=== PATIENT | male | born 1955 | race African-American/Black ===

== ENCOUNTER 2021-01-16 06:44 | Emergency (ER) | payer MEDICARE, MEDICAID ==
[~2021-01-16] VITALS: Ht 165.1 cm; Wt 83.0 kg
[~2021-01-16 06:44] MED LIST: AMLO10TA80 MT; ASPI81TA47 PO; BENA40TA9 MT; LEVO137T2 MT; TERA5CAP4 MT; XALAO EACHEYE
[2021-01-16 08:39] LABS: BASOPHILS % 0.1 % (0.0-2.0); EOSINOPHILS % 3.4 % (0.0-5.0); HEMATOCRIT. 43.6 % (42.0-52.0); HEMOGLOBIN. 14.4 g/dL (14.0-18.0); LYMPHOCYTES % 37.7 % (20.0-50.0); MEAN CORPUSCULAR HEMOGLOBIN 26.7 pg (28.0-32.0); MEAN CORPUSCULAR VOLUME 80.7 fL (80.0-94.0); MEAN PLATELET VOLUME 9.5 fl (7.4-10.4); MONOCYTES % 10.1 % (2.0-8.0); NEUTROPHILS % 48.7 % (40.0-76.0); PLATELET 152 x1000/uL (130-400); RED CELL DISTRIBUTION WIDTH 14.9 % (11.6-14.6)
[2021-01-16 08:45] LABS: CHLORIDE 104 mEq/L (98-107)
[2021-01-16 13:30] VITALS: BP 112/67
== END 2021-01-16 14:32 | disposition home or self-care (01) ==
LOC: ER 07:04
DX: I16.0 Hypertensive urgency (principal); I10 Essential (primary) hypertension; F41.9 Anxiety disorder, unspecified; H93.13 Tinnitus, bilateral; E87.8 Other disorders of electrolyte and fluid balance, not elsewhere classified; F13.10 Sedative, hypnotic or anxiolytic abuse, uncomplicated; Z79.82 Long term (current) use of aspirin
CPT/HCPCS: 36415; 80048; 84484; 85025; 93005; 99285

== ENCOUNTER 2022-03-27 22:14 | Emergency (ER) | payer MEDICARE, MEDICAID ==
[~2022-03-27] VITALS: Ht 172.7 cm; Wt 82.0 kg
[~2022-03-27 22:14] MED LIST changes: -BENA40TA9 MT; +BENA40TA91 MT
[2022-03-27 22:18] VITALS: BP 146/90
[2022-03-27 23:50] LABS: BASOPHILS % 0.5 % (0.0-2.0); EOSINOPHILS % 3.2 % (0.0-5.0); HEMATOCRIT. 41.8 % (42.0-52.0); HEMOGLOBIN. 13.6 g/dL (14.0-18.0); LYMPHOCYTES % 38.9 % (20.0-50.0); MEAN CORPUSCULAR HEMOGLOBIN 26.9 pg (28.0-32.0); MEAN CORPUSCULAR VOLUME 82.5 fL (80.0-94.0); MEAN PLATELET VOLUME 9.4 fl (7.4-10.4); MONOCYTES % 7.1 % (2.0-8.0); NEUTROPHILS % 50.3 % (40.0-76.0); PLATELET 153 x1000/uL (130-400); RED BLOOD CELL COUNT 5.06 mill/uL (4.7-6.1); RED CELL DISTRIBUTION WIDTH 15.4 % (11.6-14.6)
[2022-03-27 23:54] LABS: CHLORIDE 104 mEq/L (98-107)
== END 2022-03-28 01:04 | disposition home or self-care (01) ==
LOC: ER 22:14
DX: I10 Essential (primary) hypertension (principal)
CPT/HCPCS: 36415; 71045; 80053; 83880; 84484; 85025; 93005; 99285

== ENCOUNTER 2022-04-02 13:40 | Emergency (ER) | payer MEDICARE, MEDICAID ==
[~2022-04-02] VITALS: Ht 172.7 cm; Wt 66.0 kg
[2022-04-02 15:07] LABS: BASOPHILS % 0.5 % (0.0-2.0); HEMATOCRIT. 38.2 % (42.0-52.0); HEMOGLOBIN. 12.5 g/dL (14.0-18.0); MEAN CORPUSCULAR VOLUME 82.3 fL (80.0-94.0); NEUTROPHILS % 58.5 % (40.0-76.0); PLATELET 143 x1000/uL (130-400); RED BLOOD CELL COUNT 4.64 mill/uL (4.7-6.1); RED CELL DISTRIBUTION WIDTH 15.4 % (11.6-14.6)
[2022-04-02 15:09] LABS: CHLORIDE 105 mEq/L (98-107)
[2022-04-02 16:21] VITALS: BP 121/67
== END 2022-04-02 16:23 | disposition home or self-care (01) ==
LOC: ER 13:56
DX: R07.9 Chest pain, unspecified (principal); I10 Essential (primary) hypertension; Z79.82 Long term (current) use of aspirin
CPT/HCPCS: 36415; 71045; 80053; 83880; 84484; 85025; 93005; 99285

== ENCOUNTER 2022-04-17 08:44 | Emergency (ER) | payer MEDICARE, MEDICAID ==
[~2022-04-17] VITALS: Ht 167.6 cm; Wt 82.0 kg
[2022-04-17] MEDS ORDERED: NITROGLYCERIN OINT 1GM/INCH UDPKT TD ONE ×2 (10:00→12:00)
[2022-04-17] MEDS ORDERED: ASPIRIN 81MG TABLET PO ONE ×2 (10:00→12:00)
[2022-04-17 11:15] LABS: BASOPHILS % 0.4 % (0.0-2.0); EOSINOPHILS % 1.4 % (0.0-5.0); HEMATOCRIT. 38.1 % (42.0-52.0); HEMOGLOBIN. 12.8 g/dL (14.0-18.0); LYMPHOCYTES % 30.4 % (20.0-50.0); MEAN CORPUSCULAR HEMOGLOBIN 27.4 pg (28.0-32.0); MEAN CORPUSCULAR VOLUME 81.9 fL (80.0-94.0); MEAN PLATELET VOLUME 9.5 fl (7.4-10.4); MONOCYTES % 9.9 % (2.0-8.0); NEUTROPHILS % 57.9 % (40.0-76.0); PLATELET 136 x1000/uL (130-400); RED BLOOD CELL COUNT 4.65 mill/uL (4.7-6.1); RED CELL DISTRIBUTION WIDTH 15.4 % (11.6-14.6)
[2022-04-17 11:24] LABS: CHLORIDE 106 mEq/L (98-107)
[2022-04-17 11:34] LABS: ETHANOL BLOOD < 10 mg/dL
[2022-04-17] MEDS ORDERED: ONDANSETRON HCL 4MG/2ML INJ IV PRN (15:00)
[2022-04-17] MEDS ORDERED: ACETAMINOPHEN 325MG TABLET PO PRN (15:00)
[2022-04-17 19:00] VITALS: BP 145/81
[2022-04-18] MEDS ORDERED: ASPIRIN 81MG TABLET PO SCH (09:00)
== END 2022-04-17 20:38 | disposition left against medical advice (07) ==
LOC: ER 09:20 → EDBEDREQ 13:45 → ENRESERV 19:45 → CANRESERV 19:45 → CANBEDREQ 20:12 → ER 20:38
DX: R07.89 Other chest pain (principal); I10 Essential (primary) hypertension; F41.9 Anxiety disorder, unspecified; Z79.899 Other long term (current) drug therapy
CPT/HCPCS: 36415; 71045; 80053; 80320; 83880; 84484; 85025; 93005; 99285; G0480

== ENCOUNTER 2022-06-15 02:54 | Emergency (ER) | payer MEDICARE, MEDICAID ==
[~2022-06-15] VITALS: Ht 177.8 cm; Wt 82.0 kg
[2022-06-15 03:33] VITALS: BP 141/86
== END 2022-06-15 03:35 | disposition home or self-care (01) ==
LOC: ER 03:03
DX: I10 Essential (primary) hypertension (principal); F41.9 Anxiety disorder, unspecified; E89.0 Postprocedural hypothyroidism; Z79.82 Long term (current) use of aspirin; Z85.850 Personal history of malignant neoplasm of thyroid
CPT/HCPCS: 99283

== ENCOUNTER 2023-01-23 13:48 | Emergency (ER) | payer MEDICARE, MEDICAID ==
[~2023-01-23] VITALS: Ht 177.8 cm; Wt 77.0 kg
[2023-01-23] MEDS ORDERED: SODIUM CHLORIDE 0.9% 1,000 ML IV ONE (15:45)
[2023-01-23 16:19] LABS: BASOPHILS % 0.4 % (0.0-2.0); EOSINOPHILS % 0.3 % (0.0-5.0); HEMATOCRIT. 39.4 % (42.0-52.0); HEMOGLOBIN. 13.2 g/dL (14.0-18.0); MEAN CORPUSCULAR HEMOGLOBIN 27.2 pg (28.0-32.0); MEAN CORPUSCULAR VOLUME 81.4 fL (80.0-94.0); MEAN PLATELET VOLUME 10.2 fl (7.4-10.4); MONOCYTES % 8.7 % (2.0-8.0); NEUTROPHILS % 63.6 % (40.0-76.0); PLATELET 155 x1000/uL (130-400); RED BLOOD CELL COUNT 4.84 mill/uL (4.7-6.1); RED CELL DISTRIBUTION WIDTH 15.3 % (11.6-14.6)
[2023-01-23 16:33] LABS: CHLORIDE 107 mEq/L (98-107)
[2023-01-23 17:30] VITALS: BP 126/79
== END 2023-01-23 18:34 | disposition home or self-care (01) ==
LOC: ER 13:48
DX: R42 Dizziness and giddiness (principal); I10 Essential (primary) hypertension
CPT/HCPCS: 36415; 71045; 80053; 83880; 84484; 85025; 96360; 99285; J7030